=== PATIENT | male | born 1985 | race Native Hawaiian/Other Pacific Islander ===

== ENCOUNTER 2020-07-24 05:55 | Emergency (ER) | payer BC ==
[~2020-07-24] VITALS: Ht 182.9 cm; Wt 168.7 kg
[2020-07-24 06:03] VITALS: BP 150/85; TEMP 98.7
[2020-07-24 06:36] LABS: PLATELET COUNT 329 K/uL (142-355)
[2020-07-24 06:54] LABS: POTASSIUM 4.4 mmol/L (3.6-5.2)
[2020-07-24 07:04] LABS: PARTIAL THROMBOPLASTIN TIME 25.2 SECONDS (24.5-33.6)
== END 2020-07-24 08:02 | disposition home or self-care (01) ==
LOC: ED 05:55
PROVIDERS: Hospitalist
DX: T65.891A Toxic effect of other specified substances, accidental (unintentional), initial encounter (principal); E11.65 Type 2 diabetes mellitus with hyperglycemia; R07.0 Pain in throat; Y92.89 Other specified places as the place of occurrence of the external cause
CPT/HCPCS: 80053; 82962; 85027; 85610; 85730; 96372; 99284; J1815

== ENCOUNTER 2022-02-14 09:35 | Outpatient (CLI) | payer BC | END 2022-02-14 19:52 | disposition home or self-care (01) | LOC: RAD 09:35 | PROVIDERS: ATTEND Nurse Practitioner Primary Care | DX: M25.511 Pain in right shoulder (principal) ==

== ENCOUNTER 2022-08-24 12:42 | Outpatient (CLI) | payer BC ==
[2022-08-24 13:26] LABS: POTASSIUM 4.5 mmol/L (3.6-5.2)
== END 2022-08-24 19:00 | disposition home or self-care (01) ==
LOC: LABW 12:42
PROVIDERS: ATTEND Nurse Practitioner Family
DX: R07.89 Other chest pain (principal)
CPT/HCPCS: 36415; 80053; 82550; 82553; 84484; 93005

== ENCOUNTER 2022-10-07 14:08 | Outpatient (CLI) | payer BC | END 2022-10-07 19:06 | disposition home or self-care (01) | LOC: RAD 14:08 | PROVIDERS: ATTEND Physician Assistant | DX: M79.602 Pain in left arm (principal) ==

== ENCOUNTER 2023-01-14 14:02 | Observation (INO) | payer BC ==
[~2023-01-14] VITALS: Ht 182.9 cm; Wt 155.1 kg
[2023-01-14 14:10] VITALS: BP 166/85; TEMP 98.5
[2023-01-14 14:49] LABS: PLATELET COUNT 378 K/uL (142-355)
[2023-01-14 14:54] LABS: POTASSIUM 4.2 mmol/L (3.6-5.2)
[2023-01-14 19:36] VITALS: BP 137/79; TEMP 98.1; Ht 182.9 cm; Wt 155.1 kg
[2023-01-14] MEDS ORDERED: OZEMPIC4 MG/3 ML SC (21:11)
[2023-01-14 23:59] VITALS: BP 118/72; TEMP 98.4
[2023-01-15 03:59] VITALS: BP 142/72; TEMP 98.7
[2023-01-15 08:00] VITALS: BP 140/90; TEMP 98.1
== END 2023-01-15 11:07 | disposition home or self-care (01) ==
LOC: ED 14:02 → MED/SURG 18:54
PROVIDERS: Family Medicine; ADMIT Internal Medicine; ATTEND Internal Medicine
DX: R11.2 Nausea with vomiting, unspecified (principal); E11.65 Type 2 diabetes mellitus with hyperglycemia; E66.8 Other obesity; Z68.42 Body mass index [BMI] 45.0-49.9, adult; K57.90 Diverticulosis of intestine, part unspecified, without perforation or abscess without bleeding
CPT/HCPCS: 36415; 80053; 81002; 82150; 82550; 82948; 83690; 84484; 85027; 96360; 96361; 96367; 96374; 96375; 96376; 99220; 99284; G0378; J1200; J2270; J2405; J2550; J2765; J3490